=== PATIENT | female | born 1985 | race Caucasian/White ===

== ENCOUNTER → 2016-07-08 | Outpatient (CLI) | payer OTHER ==
[2016-07-08 12:46] LABS: Basophils # (A) 0.1 k/uL (0-0.2); Basophils % (A) 1 %; CHCM 32.3; Eosinophils # (A) 0.6 k/uL (0-0.7); Eosinophils % (A) 6 %; HCT 43.2 % (34.0-46.0); HDW 2.51; HGB 13.9 gm/dL (11.4-16.0); Luc # (Auto) 0.13; Luc % (Auto) 1; Lymphocytes # (A) 2.3 k/uL (1.0-4.8); Lymphocytes % (A) 21 %; MCHC 32.1 g/dL (31.0-37.0); MCV 90.2 fL (80.0-100.0); Mean Platelet Volume 7.5; Monocytes # (A) 0.6 k/uL (0-1.0); Monocytes % (A) 6 %; Neutrophils # (A) 7.1 k/uL (1.3-7.7); Neutrophils % (A) 66 %; RBC 4.79 m/uL (3.80-5.40); RDW 13.9 % (11.5-15.5); WBC 10.7 k/uL (3.8-10.6); WBC (Perox) 11.14
--- NOTE | 2016-07-08 14:32 | CT ---
EXAMINATION TYPE: CT abdomen pelvis w con DATE OF EXAM: 07/08/2016 2:25 PM COMPARISON: NONE HISTORY: Rt lower quad. pain CT DLP: 1843.8 mGycm Automated exposure control for dose reduction was used. TECHNIQUE: Helical acquisition of images from the lung bases through the pelvis have been completed. CONTRAST: Performed with Oral Contrast and with IV Contrast, patient injected with 100 mL of Omnipaque 300. FINDINGS: LUNG BASES: No significant abnormality is appreciated. AORTA: No significant abnormality is appreciated. LIVER/GB: Borderline enlarged liver, the liver shows low attenuation which may be due to fatty infilt ration, gallbladder is normal PANCREAS: No significant abnormality is seen. SPLEEN: No significant abnormality is seen. ADRENALS: No significant abnormality is seen. KIDNEYS: No significant abnormality is seen. REPRODUCTIVE ORGANS: No significant abnormality is seen BOWEL: No significant abnormality is seen. The appendix is normal. FREE AIR: No Free Air visible ASCITES: None visible. PELVIC ADENOPATHY: None visualized. RETROPERITONEAL ADENOPATHY: No Retroperitoneal Adenopathy visible. URINARY BLADDER: No significant abnormality is seen. OSSEOUS STRUCTURES: No significant abnormality is seen. There is an umbilical hernia which contains fat, some increased attenuation is present within the loc al fat suggesting inflammatory change. IMPRESSION: FINDINGS SUGGEST INCARCERATED FAT WITHIN AN ABDOMINAL WALL HERNIA IN THE UMBILICAL LOCATION WITH FAT NECROSIS. Additional findings above.
== END | disposition home or self-care (01) ==
LOC: RADCTMAIN 12:05 → UNDOADMIN 15:12 → 3SUR 15:12
PROVIDERS: ATTEND Family Medicine
DX: R10.30 Lower abdominal pain, unspecified (principal); R10.2 Pelvic and perineal pain
CPT/HCPCS: 85025; 74177; 36415; Q9967

== ENCOUNTER 2016-07-15 07:08 | Day surgery (SDC) | payer OTHER ==
[2016-07-10 13:18] VITALS: BMI 40.1
[~2016-07-15 07:08] MED LIST: DEXAMETHASONE SOD PHOSPHATE 10 MG/ML 1 ML VIAL IV ONE; HEPARIN SODIUM,PORCINE 5,000 UNIT/ML 1 ML VIAL SQ ONE; LACTATED RINGERS 1,000 ML IV SCH; LIDOCAINE 1% 20 ML VIAL (10MG/ML) FOR IV START INTRADERMA PRN; MIDAZOLAM 2 MG/2 ML VIAL IV PRN; ONDANSETRON 4 MG/2 ML VIAL IVP ONE; SCOPOLAMINE 1.5MG/72HR PATCH TRANSDERM ONE; ceFAZolin 2 GM in SODIUM CHLORIDE 0.9% 100 ML IVPB ONE
--- NOTE | 2016-07-15 07:52 | P.GSHP ---
History of Present Illness H&P Date: 07/15/16 Chief Complaint: Incarcerated umbilical hernia This a 31-year-old female who presents today for laparoscopic robotic-assisted repair of incarcerated umbilical hernia. Patient's had complaints of pain and a mass for several months. - Constitutional Constitutional: Reports as per HPI Past Medical History Past Medical History: No Reported History Additional Past Medical History / Comment(s): migraines, fluctuating- was on Rx but none currently History of Any Multi-Drug Resistant Organisms: None Reported Past Surgical History: Adenoidectomy, Ear Surgery, Orthopedic Surgery, Tonsillectomy Additional Past Surgical History / Comment(s): left foot surgery, tubes in ears Past Anesthesia/Blood Transfusion Reactions: No Reported Reaction Past Psychological History: Depression Additional Psychological History / Comment(s): no current rx Smoking Status: Current every day smoker Past Alcohol Use History: None Reported Additional Past Alcohol Use History / Comment(s): smokes 1/2 PPD, for 10 yrs Past Drug Use History: None Reported - Past Family History Mother Family Medical History: No Reported History Medications and Allergies Home Medications Medication Instructions Recorded Confirmed Type No Known Home Medications [No 07/10/16 07/15/16 History Known Home Medications] Allergies Allergy/AdvReac Type Severity Reaction Status Date / Time No Known Allergies Allergy Verified 07/15/16 07:34 Surgical - Exam Vital Signs Temp Pulse Resp BP Pulse Ox 98.4 F 88 18 142/95 98 07/15/16 07:35 07/15/16 07:35 07/15/16 07:35 07/15/16 07:35 07/15/16 07:35 - General well developed, no distress - Eyes PERRL - ENT normal pinna - Neck no masses - Respiratory normal expansion - Cardiovascular Rhythm: regular - Abdomen Abdomen: soft, non tender Hernia: umbilical, incarcerated Assessment and Plan Plan: Incarcerated umbilical hernia. We'll perform laparoscopic robotic system repair.
[2016-07-15] MEDS ORDERED: LACTATED RINGERS 1,000 ML IV ONE (08:00)
[2016-07-15] MEDS ORDERED: HYDROmorphone (PF) 1 MG/ML ONE (08:03)
[2016-07-15] MEDS ORDERED: GLYCOPYRROLATE 0.2 MG/ML 2 ML VIAL ONE (08:03)
[2016-07-15] MEDS ORDERED: ACETAMINOPHEN IV (For NPO) 1,000 MG/100 ML VIAL ONE (08:03)
[2016-07-15] MEDS ORDERED: LIDOCAINE 1% INJ 10MG/ML (20 ML MDV) ONE (08:03)
[2016-07-15] MEDS ORDERED: SUCCINYLCHOLINE CHLORIDE 100 MG/5 ML SYR IV ONE (08:03)
[2016-07-15] MEDS ORDERED: fentaNYL (PF) 50 MCG/ML 2 ML AMP ONE (08:03)
[2016-07-15] MEDS ORDERED: VECURONIUM 10 MG VIAL IV ONE (08:03)
[2016-07-15] MEDS ORDERED: KETOROLAC 30 MG/ML 1 ML VIAL ONE (08:03)
[2016-07-15] MEDS ORDERED: NEOSTIGMINE 1 MG/ML 10 ML VIAL ONE (08:03)
[2016-07-15] MEDS ORDERED: LABETALOL 5 MG/ML VIAL MDV ONE (08:03)
[2016-07-15] MEDS ORDERED: MIDAZOLAM 2 MG/2 ML VIAL ONE ×2 (08:03)
[2016-07-15] MEDS ORDERED: PROPOFOL 10 MG/ML 20 ML VIAL IV ONE (08:03)
[2016-07-15] MEDS ORDERED: BUPIVACAIN-EPI 0.25%-1:200,000 30 ML VIAL SQ ONE (08:34)
--- NOTE | 2016-07-15 09:25 | P.OP ---
Date of Procedure: 07/15/16 Preoperative Diagnosis: Incarcerated umbilical hernia Postoperative Diagnosis: Incarcerated umbilical hernia Procedure(s) Performed: Laparoscopic robotic-assisted repair of incarcerated umbilical hernia Anesthesia: OTTONIEL Surgeon: Manish Carrera Estimated Blood Loss (ml): 5 Pathology: other (Omentum) Condition: stable Disposition: PACU Description of Procedure: The patient's placed on the operative table in the supine position. She received general anesthesia. Her abdomen was prepped and draped in the usual sterile fashion. The patient's placed the left side up position. Using a 5 mm blade less trocar the peritoneal cavity is entered. Upon entering the pleural cavity the abdomen was insufflated. Laparoscope placed back the pleural cavity and then a 8 mm robotic trocar was placed the left lower quadrant and then a 12 mm trocar was placed in the left lateral position and then the original 5 mm trocar was exchanged for an 8 mm robotic trocar. The sutures mesh were placed into the perineal cavity. The fascial defect was visualized. There was incarcerated omentum. The incarcerated omentum was dissected free using the hook cautery. The fascial defect was then closed using OV lock suture. The ventral light ST mesh was then secured using 2 OV lock suture. The needles were then withdrawn. The incarcerated omentum was placed into an Endo Catch and brought out of the patient. And then a 12 mm fascia trocar site was closed with 0 Ethibond suture using a Maurice Christianson suture passer. The skin was closed interrupted 3-0 Monocryl suture. Dermabond was applied. Patient was sent to recovery in stable condition.
[2016-07-15 09:35] VITALS: TEMP 97.4
[2016-07-15] MEDS: HYDROmorphone 1 MG/ML 1 ML SYRINGE IVP PRN ×2 (09:40→09:46)
[2016-07-15 10:12] VITALS: RESP 18
[2016-07-15 10:43] VITALS: PULSE 82
[2016-07-15 11:03] VITALS: BP 125/87
== END 2016-07-15 11:07 | disposition home or self-care (01) ==
LOC: OR 07:08
PROVIDERS: ATTEND Surgery
DX: K42.0 Umbilical hernia with obstruction, without gangrene (principal); F17.200 Nicotine dependence, unspecified, uncomplicated
CPT/HCPCS: 81025; 88305; 49653; C1781; J2250; J1644; J1100; J2710; J0690; J2405; J2001; J3010; J1885; J1170; J0131; J0330; J2704

== ENCOUNTER 2017-08-04 20:06 | Emergency (ER) | payer OTHER ==
[2017-08-04 20:21] VITALS: RESP 18
--- NOTE | 2017-08-04 20:57 | ED ---
Extremity Problem HPI - General Chief complaint: Extremity Problem,Nontraumatic Stated complaint: left thigh pain Time Seen by Provider: 08/04/17 20:30 Source: patient Mode of arrival: ambulatory Limitations: no limitations - History of Present Illness Initial comments: 32-year-old male presented for evaluation of left anterior thigh pain. She states this started yesterday when she was running with her child. She states that they were racing back to her car and after she got the car and was resting she felt pain in her anterior thigh. States the pain is continued despite Motrin and Tylenol. She denies having any muscle sprains or muscle pulls. Worse with ambulation and improves with rest. There is no underlying swelling or erythema she has no decreased range of motion of her extremity's. There is no associated fevers chills there is no medial involvement of the thigh. - Related Data Home Medications Medication Instructions Recorded Confirmed ALPRAZolam [Xanax] 0.5 mg PO DAILY PRN 08/04/17 08/04/17 Valsartan [Diovan] 160 mg PO DAILY 08/04/17 08/04/17 buPROPion HCL [Wellbutrin SR] 200 mg PO BID 08/04/17 08/04/17 Previous Rx's Medication Instructions Recorded Ibuprofen [Motrin] 800 mg PO Q6HR #30 tab 08/04/17 Allergies Allergy/AdvReac Type Severity Reaction Status Date / Time No Known Allergies Allergy Verified 08/04/17 20:30 Review of Systems ROS Statement: Those systems with pertinent positive or pertinent negative responses have been documented in the HPI. ROS Other: All systems not noted in ROS Statement are negative. Constitutional: Denies: fever, chills Respiratory: Denies: cough, dyspnea Cardiovascular: Denies: chest pain, palpitations Musculoskeletal: Reports: myalgia. Denies: back pain, joint swelling, arthralgia Skin: Denies: rash, lesions, change in color Neurological: Denies: headache, weakness, numbness, paresthesias Past Medical History Past Medical History: Hypertension Additional Past Medical History / Comment(s): migraines, fluctuating- was on Rx but none currently History of Any Multi-Drug Resistant Organisms: None Reported Past Surgical History: Adenoidectomy, Section, Ear Surgery, Hernia Repair, Orthopedic Surgery, Tonsillectomy Additional Past Surgical History / Comment(s): left foot surgery, tubes in ears, Past Anesthesia/Blood Transfusion Reactions: No Reported Reaction Past Psychological History: Depression Smoking Status: Current every day smoker Past Alcohol Use History: None Reported Past Drug Use History: None Reported - Past Family History Mother Family Medical History: No Reported History General Exam Limitations: no limitations General appearance: alert, in no apparent distress Head exam: Present: atraumatic, normocephalic Eye exam: Present: normal appearance, PERRL Cardiovascular Exam: Present: regular rate, normal rhythm Rectal exam: Present: deferred Skin exam: Present: warm, dry (2 cm laceration to the right distal forearm) Course Vital Signs 08/04/17 08/04/17 20:14 21:29 Temperature 97.0 F L 98.2 F Pulse Rate 100 92 Respiratory 18 18 Rate Blood Pressure 193/105 184/100 O2 Sat by Pulse 97 99 Oximetry Procedures - Laceration Laceration #1 Consent Obtained: verbal consent Time Out Performed: Yes Indication: laceration Site: upper extremity Size (cm): 2 Description: linear Depth: simple, single layer Anesthetic Used: lidocaine 2% Anesthesia Technique: local infiltration Amount (mls): 4 Pre-repair: wound explored Type of Sutures: nylon Size of Sutures: 4-0 Technique: simple, interrupted Patient Tolerated Procedure: well Medical Decision Making - Medical Decision Making 32-year-old male presented for evaluation 2 cm lack to the right distal forearm. Linear and well approximated requiring 5 sutures. This updated. Given instructions to have sutures removed in 5-7 days. Given return instructions. Disposition Clinical Impression: Muscle strain of left thigh Disposition: HOME SELF-CARE Condition: Stable Instructions: Muscle Strain (ED), Musculoskeletal Pain (ED) Additional Instructions: Please use medication as discussed. Please follow up with family doctor if symptoms have not improved over the next two days. Please return to the emergency room if your symptoms increase or worsen or for any other concerns. Prescriptions: Ibuprofen [Motrin] 800 mg PO Q6HR #30 tab Referrals: Saritha Vela MD [Primary Care Provider] - 1-2 days Time of Disposition: 20:57
[2017-08-04 21:30] VITALS: BP 184/100; PULSE 92; TEMP 98.2
== END 2017-08-04 21:30 | disposition home or self-care (01) ==
LOC: EC 20:06
DX: S76.912A Strain of unspecified muscles, fascia and tendons at thigh level, left thigh, initial encounter (principal); S51.811A Laceration without foreign body of right forearm, initial encounter; I10 Essential (primary) hypertension; F32.9 Major depressive disorder, single episode, unspecified; F17.200 Nicotine dependence, unspecified, uncomplicated; Z98.890 Other specified postprocedural states; Z79.899 Other long term (current) drug therapy; X50.1XXA Overexertion from prolonged static or awkward postures, initial encounter; Y93.02 Activity, running
CPT/HCPCS: 12001; 99283

== ENCOUNTER 2017-09-29 11:33 | Emergency (ER) | payer OTHER ==
[2017-09-29 11:47] VITALS: TEMP 97.8
[2017-09-29] MEDS ORDERED: cloNIDine HCL 0.1 MG TAB PO STA (12:25)
--- NOTE | 2017-09-29 12:31 | ED ---
General Adult HPI - General Chief complaint: Upper Respiratory Infection Stated complaint: chest congestion/not sleeping Time Seen by Provider: 09/29/17 12:11 Source: patient, RN notes reviewed Mode of arrival: wheelchair Limitations: no limitations - History of Present Illness Initial comments: Patient 32 old female presented to the emergency room today with chief complaint cough congestion and rhinorrhea and a sore throat over the last 4 days. Patient states that she's had yellow sputum production. She does admit to headache behind her eyes. Patient states sore throat when she swallows. Patient denies any other complaints or symptoms at this time. Patient omits to having elevated blood pressures see her family doctor for this. - Related Data Home Medications Medication Instructions Recorded Confirmed ALPRAZolam [Xanax] 0.5 mg PO DAILY PRN 08/04/17 08/04/17 Valsartan [Diovan] 160 mg PO DAILY 08/04/17 08/04/17 buPROPion HCL [Wellbutrin SR] 200 mg PO BID 08/04/17 08/04/17 Previous Rx's Medication Instructions Recorded Ibuprofen [Motrin] 800 mg PO Q6HR #30 tab 08/04/17 Azithromycin [Zithromax Z-pack] 0 mg PO DIRECTED #6 tab 09/29/17 Fluticasone Propionate [Flonase 1 - 2 spray EA NOSTRIL DAILY 5 09/29/17 Allergy Relief] Days ml Allergies Allergy/AdvReac Type Severity Reaction Status Date / Time No Known Allergies Allergy Verified 09/29/17 11:46 Review of Systems ROS Statement: Those systems with pertinent positive or pertinent negative responses have been documented in the HPI. ROS Other: All systems not noted in ROS Statement are negative. Past Medical History Past Medical History: Hypertension Additional Past Medical History / Comment(s): migraines, fluctuating- was on Rx but none currently History of Any Multi-Drug Resistant Organisms: None Reported Past Surgical History: Adenoidectomy, Section, Ear Surgery, Hernia Repair, Orthopedic Surgery, Tonsillectomy Additional Past Surgical History / Comment(s): left foot surgery, tubes in ears, Past Anesthesia/Blood Transfusion Reactions: No Reported Reaction Past Psychological History: Depression Smoking Status: Current every day smoker Past Alcohol Use History: None Reported Past Drug Use History: None Reported - Past Family History Mother Family Medical History: No Reported History General Exam - General Exam Comments Initial Comments: General: The patient is awake and alert, in no distress, and does not appear acutely ill. Eye: Pupils are equal, round and reactive to light, extra-ocular movements are intact. No nystagmus. There is normal conjunctiva bilaterally. No signs of icterus. Ears, nose, mouth and throat: There are moist mucous membranes and no oral lesions. Patient does have tenderness over the frontal sinuses. Neck: The neck is supple, there is no tenderness or JVD. Cardiovascular: There is a regular rate and rhythm. No murmur, rub or gallop is appreciated. Respiratory: Lungs are clear to auscultation, respirations are non-labored, breath sounds are equal. No wheezes, stridor, rales, or rhonchi. Musculoskeletal: Normal ROM, no tenderness. Strength 5/5. Sensation intact. Pulses equal bilaterally 2+. Neurological: A&O x 3. CN II-XII intact, There are no obvious motor or sensory deficits. Coordination appears grossly intact. Speech is normal. Skin: Skin is warm and dry and no rashes or lesions are noted. Psychiatric: Cooperative, appropriate mood & affect, normal judgment. Limitations: no limitations Course Vital Signs 09/29/17 11:42 Temperature 97.8 F Pulse Rate 92 Respiratory 18 Rate Blood Pressure 183/106 O2 Sat by Pulse 98 Oximetry Medical Decision Making - Medical Decision Making Patient symptoms are consistent with a sinus infection will be treated with Flonase and given a prescription for azithromycin as she states she usually gets a antibiotic for infections. Patient blood pressure is mildly elevated here in the emergency room repeat blood pressure 177/105. She states she did take her morning medication. Patient states that she does have appointment with her family doctor for this. Patient agreeable to take a by mouth medication here the emergency room for blood pressure. She states she will have her blood pressure checked later this week. Disposition Clinical Impression: Acute sinusitis, Hypertension Disposition: HOME SELF-CARE Condition: Good Instructions: Sinusitis (ED) Additional Instructions: Please use medication as discussed. Please follow-up with family doctor in the next 2 days of symptoms have not improved. Please return to emergency room if the symptoms increase or worsen or for any other concerns. Prescriptions: Azithromycin [Zithromax Z-pack] 0 mg PO DIRECTED #6 tab Fluticasone Propionate [Flonase Allergy Relief] 1 - 2 spray EA NOSTRIL DAILY 5 Days ml Is patient prescribed a controlled substance at discharge?: No Referrals: Saritha Vela MD [Primary Care Provider] - 1-2 days Time of Disposition: 12:28
[2017-09-29 13:22] VITALS: BP 171/96; PULSE 64; RESP 16
== END 2017-09-29 13:23 | disposition home or self-care (01) ==
LOC: EC 11:33
DX: J01.90 Acute sinusitis, unspecified (principal); I10 Essential (primary) hypertension; J02.9 Acute pharyngitis, unspecified; F32.9 Major depressive disorder, single episode, unspecified; F17.200 Nicotine dependence, unspecified, uncomplicated; Z79.899 Other long term (current) drug therapy; Z90.89 Acquired absence of other organs
CPT/HCPCS: 99283

== ENCOUNTER 2018-10-31 09:06 | Inpatient (IN) | payer OTHER ==
[2018-10-31] MEDS: LACTATED RINGERS 1,000 ML IV SCH ×3 (09:55→12:42)
[2018-10-31 10:14] LABS: Basophils # (A) 0.1 k/uL (0-0.2); Basophils % (A) 0 %; Eosinophils # (A) 0.3 k/uL (0-0.7); Eosinophils % (A) 2 %; HCT 37.1 % (34.0-46.0); HGB 11.9 gm/dL (11.4-16.0); Lymphocytes % (A) 16 %; MCH 29.1 pg (25.0-35.0); MCHC 32.2 g/dL (31.0-37.0); MCV 90.4 fL (80.0-100.0); Mean Platelet Volume 7.1; Monocytes # (A) 0.6 k/uL (0-1.0); Monocytes % (A) 5 %; Neutrophils # (A) 9.1 k/uL (1.3-7.7); Neutrophils % (A) 75 %; Platelet Count 310 k/uL (150-450); RBC 4.11 m/uL (3.80-5.40); RDW 13.8 % (11.5-15.5); WBC 12.2 k/uL (3.8-10.6)
[2018-10-31 10:21] LABS: Appearance,Urine Cloudy (Clear); Bacteria,Urine Rare /hpf; Bilirubin,Urine 1+ (Negative); Blood,Urine Negative (Negative); Color,Urine Light Orange; Glucose,Urine (UA) Negative (Negative); Hyaline Casts,Urine 1 /lpf (0-2); Ketones,Urine 1+ (Negative); Leukocyte Esterase,Urine Moderate (Negative); Mucus,Urine Moderate /hpf; Nitrite,Urine Negative (Negative); Protein,Urine 1+ (Negative); RBC,Urine 2 /hpf (0-5); Specific Gravity,Urine 1.031 (1.001-1.035); Squamous Epithelial Cell,Urine 5 /hpf (0-4); WBC,Urine 7 /hpf (0-5)
[2018-10-31 10:38] LABS: ALT 11 U/L (9-52); AST 19 U/L (14-36); Blood Urea Nitrogen 12 mg/dL (7-17); LDH 454 U/L (313-618); Uric Acid 6.1 mg/dL (3.7-7.4)
[2018-10-31] MEDS ORDERED: OXYTOCIN 10 UNIT/ML 1 ML VIAL IM PRN (11:25)
[2018-10-31] MEDS ORDERED: LIDOCAINE 0.5% (PF) 5 MG/ML (50 ML SDV) SQ PRN (11:25)
[2018-10-31] MEDS ORDERED: TERBUTALINE 1 MG/ML VIAL SQ PRN (11:25)
[2018-10-31] MEDS ORDERED: CARBOPROST TROMETHAMINE 250 MCG/ML 1 ML AMP IM PRN (11:25)
[2018-10-31] MEDS ORDERED: METHYLERGONOVINE 0.2 MG/ML 1 ML AMP IM PRN (11:25)
[2018-10-31] MEDS ORDERED: AMPICILLIN 2,000 MG in SODIUM CHLORIDE 0.9% 100 ML IVPB STA (11:27)
[2018-10-31] MEDS ORDERED: OXYTOCIN 30 UNITS/500 ML NS 30 UNIT in SALINE 1 500ML.BAG IV SCH (11:30)
[2018-10-31] MEDS ORDERED: hydrALAZINE HCL 20 MG/ML 1 ML VIAL IVP STA (11:32)
[2018-10-31 12:46] VITALS: BMI 35.4
[2018-10-31] MEDS ORDERED: CALCIUM GLUCONATE 1 GM/10 ML VIAL IV PRN (12:47)
[2018-10-31] MEDS ORDERED: MAGNESIUM SULFATE-WATER PMX 4 GM in WATER FOR INJECTION 1 100ML.BAG IVPB ONE (12:47)
--- NOTE | 2018-10-31 12:54 | P.HPOB ---
History of Present Illness H&P Date: 10/31/18 Chief Complaint: IUP at 36 and 4/sevenths weeks, preeclampsia This is a 33-year-old 4 para 3003 that presented to labor and delivery this morning with complaints of pelvic pressure and contractions. Initial blood pressures were noted to be elevated 150s to 160s over 90s. Preeclampsia labs were drawn all were essentially negative with the exception of +1 protein on her urine, and an elevated uric acid of 6. Patient denied headache right upper quadrant pain or visual changes at this time. Patient notes good movement and NST in triage was noted to be reactive, contractions were irregular at this time. On cervical exam she was 1/thick/high. Patient has been receiving routine care with myself on last visit her blood pressure was noted to be slightly elevated 130s over 90s. Patient was given an outpatient lab slip for preeclampsia/24-hour urine she did not do this over the weekend. Patient states she is unsure of why she didn't have her labs drawn. On blood work patient had a blood type of A-, rubella immune, hepatitis B surface antigen negative, HIV negative, RPR nonreactive, GBS was unknown/pending for gestational age. Review of Systems Constitutional: Denies chills, Denies fatigue, Denies fever Ears, nose, mouth and throat: Denies headache Cardiovascular: Reports leg edema Respiratory: Denies dyspnea Gastrointestinal: Denies nausea, Denies vomiting Genitourinary: Reports Past Medical History Past Medical History: Hypertension Additional Past Medical History / Comment(s): migraines History of Any Multi-Drug Resistant Organisms: MRSA Date of last positivie culture/infection: 10/2018 MDRO Source:: bilateral ears Past Surgical History: Adenoidectomy, Section, Ear Surgery, Hernia Repair, Orthopedic Surgery, Tonsillectomy Additional Past Surgical History / Comment(s): left foot surgery, tubes in ears Past Anesthesia/Blood Transfusion Reactions: No Reported Reaction Past Psychological History: Anxiety, Depression Additional Psychological History / Comment(s): no current rx Smoking Status: Former smoker Past Alcohol Use History: None Reported Additional Past Alcohol Use History / Comment(s): smokes 1/2 PPD, quit smoking 1 week ago Past Drug Use History: None Reported - Past Family History Mother Family Medical History: No Reported History Medications and Allergies Home Medications Medication Instructions Recorded Confirmed Type No Known Home Medications 10/31/18 10/31/18 History Allergies Allergy/AdvReac Type Severity Reaction Status Date / Time No Known Allergies Allergy Verified 10/31/18 09:20 Exam Osteopathic Statement: *. No significant issues noted on an osteopathic structural exam other than those noted in the History and Physical/Consult. Vital Signs Temp Pulse Resp BP Pulse Ox 10/31/18 09:22 97.4 F L 99 16 152/90 98 Intake and Output 10/30/18 10/31/18 10/31/18 22:59 06:59 14:59 Other: Weight 90.718 kg Targeted physical exam is performed on this date in general this is a well- nourished well-developed female in no acute distress breathing is noted to be nonlabored and her heart has a regular rhythm. Abdomen is noted to be gravid and appropriate for gestational age, heart tones are noted to be reactive and she is cat irregularly, on cervical exam she is 2-3/thick/-2 station amniotomy is performed and clear fluid was obtained. Results Result Diagrams: 10/31/18 09:45 10/31/18 09:45 Abnormal Lab Results - Last 24 Hours (Table) 10/31/18 10/31/18 10/31/18 Range/Units 09:45 09:45 09:45 WBC 12.2 H (3.8-10.6) k/uL Neutrophils # 9.1 H (1.3-7.7) k/uL Urine Appearance Cloudy H (Clear) Urine Protein 1+ H (Negative) Urine Ketones 1+ H (Negative) Urine Bilirubin 1+ H (Negative) Ur Leukocyte Esterase Moderate H (Negative) Urine WBC 7 H (0-5) /hpf Ur Squamous Epith Cells 5 H (0-4) /hpf Urine Bacteria Rare H (None) /hpf Urine Mucus Moderate H (None) /hpf U Random Total Protein 18 H (<12) mg/dL Assessment and Plan (1) 36 weeks gestation of Current Visit: Yes Status: Acute Code(s): Z3A.36 - 36 WEEKS GESTATION OF SNOMED Code(s): 91268581 (2) Preeclampsia Current Visit: Yes Status: Acute Code(s): O14.90 - UNSPECIFIED PRE- ECLAMPSIA, UNSPECIFIED TRIMESTER SNOMED Code(s): 477076090 (3) H/O section Current Visit: Yes Status: Acute Code(s): Z98.891 - HISTORY OF UTERINE SCAR FROM PREVIOUS SURGERY SNOMED Code(s): 225228892 (4) Desires (vaginal after ) trial Current Visit: Yes Status: Acute Code(s): O34.219 - MATERNAL CARE FOR UNSP TYPE SCAR FROM PREVIOUS DEL SNOMED Code(s): 228312999 Plan: Patient is admitted to labor and delivery with induction of labor planned with Pitocin. Patient has a history of 2 vaginal deliveries, third delivery was a C- section secondary to breech presentation. Patient is begun on magnesium sulfate, labetalol is being given IV for blood pressures. We will watch closely and anticipate spontaneous vaginal delivery. If her blood pressures remain uncontrolled despite labetalol/hydralazine treatment we will consider to expedite delivery.
[2018-10-31] MEDS: LABETALOL SYRINGE 5 MG/ML IVP SCH (14:10)
[2018-10-31] MEDS ORDERED: fentaNYL (PF) 50 MCG/ML 5 ML AMP ONE (15:10)
[2018-10-31] MEDS ORDERED: SODIUM CHLORIDE 0.9% 100 ML BAG ONE (15:10)
[2018-10-31] MEDS ORDERED: ROPIVACAINE 5MG/ML 20ML VIAL ONE (15:10)
[2018-10-31] MEDS: AMPICILLIN 1,000 MG in SODIUM CHLORIDE 0.9% 50 ML IVPB SCH (16:24)
[2018-10-31] MEDS ORDERED: ACETAMINOPHEN TAB 325 MG TAB PO PRN (19:18)
[2018-10-31] MEDS ORDERED: SIMETHICONE 80 MG CHEWABLE PO PRN (19:18)
[2018-10-31] MEDS ORDERED: diphenhydrAMINE 25 MG CAP PO PRN (19:18)
[2018-10-31] MEDS ORDERED: WITCH HAZEL 1 EACH MED..PAD TOPICAL PRN (19:18)
[2018-10-31] MEDS ORDERED: BENZOCAINE/MENTHOL SPRAY 1 GM/SPRAY AEROSOL TOPICAL PRN (19:18)
[2018-10-31] MEDS ORDERED: ZOLPIDEM 5 MG TAB PO PRN (19:18)
[2018-10-31] MEDS ORDERED: LANOLIN CREAM 5 GM TUBE TOPICAL PRN (19:18)
[2018-10-31] MEDS ORDERED: diphenhydrAMINE 50 MG CAP PO PRN (19:18)
[2018-10-31] MEDS ORDERED: HYDROCORTISONE 2.5% RECTAL CREAM 30 GM TUBE RECTAL PRN (19:18)
[2018-10-31] MEDS ORDERED: diphenhydrAMINE 50 MG/ML 1 ML VIAL IVP PRN ×2 (19:18)
[2018-10-31] MEDS ORDERED: HYDROcodone/APAP 5-325MG 1 EACH TAB PO PRN (19:18)
--- NOTE | 2018-10-31 19:21 | P.PROBDLV ---
Vaginal Delivery Note - . Vaginal Delivery Note: This is a 33-year-old 4 para 3003 that was admitted to labor and delivery for elevated blood pressure/preeclampsia this afternoon. Patient had elevated pressures for 150s to 160s over 90s to 100. Patient denies headache visual changes or right upper quadrant pain or time. Pre-[place] labs were noted to be negative with the exception of an elevated uric acid at 6 and +1 protein in the urine. Patient was admitted to labor and delivery Pitocin induction of labor was begun. Once contractions were noted to be regular amniotomy was performed. Patient progressed became uncomfortable and requesting epidural placement. Epidural was placed by anesthesia without difficulty. Patient progressed to complete began pushing and had a normal spontaneous vaginal delivery of a viable male infant loose nuchal cord was noted 2 and this was delivered through. Of note a true knot was noted within the umbilical cord. The umbilical cord was doubly clamped and cut and the infant was handed off to awaiting RN. A spontaneous cry at was noted. The placenta was then delivered spontaneously intact with a three-vessel cord being noted. Inspection the patient's vaginal vault lacerations were noted the uterus sounded to be firm and below the umbilicus, estimated blood loss was noted to be 300 mL. Next para patient and tolerated delivery well and are resting comfortably. weight was noted to be 5/15, Apgars of 8 and 9 at one and 5 minutes res pectively. Delivery time of 1850.
[2018-10-31] MEDS ORDERED: OXYTOCIN 20 UNITS/1000 ML NS 1,000 ML IV SCH (19:30)
[2018-10-31] MEDS: LABETALOL 100 MG TAB PO SCH (20:29)
[2018-10-31] MEDS: IBUPROFEN 600 MG TAB PO PRN (21:47)
[2018-11-01] MEDS: SENNOSIDES-DOCUSATE SODIUM 1 EACH TAB PO SCH ×3 (01:41→20:06)
[2018-11-01 07:29] LABS: Basophils % (A) 0 %; Eosinophils # (A) 0.3 k/uL (0-0.7); Eosinophils % (A) 3 %; HCT 33.2 % (34.0-46.0); HGB 10.5 gm/dL (11.4-16.0); Lymphocytes # (A) 2.1 k/uL (1.0-4.8); Lymphocytes % (A) 20 %; MCH 29.1 pg (25.0-35.0); MCHC 31.7 g/dL (31.0-37.0); MCV 91.9 fL (80.0-100.0); Mean Platelet Volume 7.1; Monocytes # (A) 0.6 k/uL (0-1.0); Monocytes % (A) 6 %; Neutrophils # (A) 7.4 k/uL (1.3-7.7); Neutrophils % (A) 69 %; Platelet Count 268 k/uL (150-450); RBC 3.61 m/uL (3.80-5.40); RDW 13.8 % (11.5-15.5); WBC 10.6 k/uL (3.8-10.6)
--- NOTE | 2018-11-01 09:23 | P.PNOBGVD ---
Subjective - Subjective Principal diagnosis: PPD 1 Interval history: Patient is doing well status post normal spontaneous vaginal delivery. Patient denies concerns this morning she states her pain is well-controlled. She is bottle feeding. Her lochia is moderate. She is ambulatory and voiding without difficulty. Blood pressures overnight 150s over 90s tolerating labetalol 100 twice daily well Patient reports: Reports appetite normal, Reports voiding normally, Reports pain well controlled, Reports ambulating normally : doing well Objective - Latest Vital Signs Latest vital signs: Vital Signs Temp Pulse Pulse Resp BP Pulse Ox 11/01/18 07:41 97.8 F 67 16 150/95 11/01/18 04:00 98.2 F 77 18 128/72 98 11/01/18 00:00 98 F 85 16 133/71 97 10/31/18 21:01 97.4 F L 88 17 131/68 10/31/18 20:31 83 16 154/85 10/31/18 20:01 83 16 151/91 10/31/18 19:46 86 16 147/81 10/31/18 19:31 97.5 F L 90 16 160/84 10/31/18 19:16 85 16 147/80 10/31/18 19:01 98.7 F 87 16 162/80 Intake and Output 10/31/18 11/01/18 11/01/18 22:59 06:59 14:59 Other: # Voids 1 1 - Exam Extremities: Present: edema Abdomen: Present: normal appearance, soft Uterus: Present: normal, firm - Labs Labs: Abnormal Lab Results - Last 24 Hours (Table) 10/31/18 10/31/18 10/31/18 Range/Units 09:45 09:45 09:45 WBC 12.2 H (3.8-10.6) k/uL RBC (3.80-5.40) m/uL Hgb (11.4-16.0) gm/dL Hct (34.0-46.0) % Neutrophils # 9.1 H (1.3-7.7) k/uL Urine Appearance Cloudy H (Clear) Urine Protein 1+ H (Negative) Urine Ketones 1+ H (Negative) Urine Bilirubin 1+ H (Negative) Ur Leukocyte Esterase Moderate H (Negative) Urine WBC 7 H (0-5) /hpf Ur Squamous Epith Cells 5 H (0-4) /hpf Urine Bacteria Rare H (None) /hpf Urine Mucus Moderate H (None) /hpf U Random Total Protein 18 H (<12) mg/dL // Range/Units 06:31 WBC (3.8-10.6) k/uL RBC 3.61 L (3.80-5.40) m/uL Hgb 10.5 L (11.4-16.0) gm/dL Hct 33.2 L (34.0-46.0) % Neutrophils # (1.3-7.7) k/uL Urine Appearance (Clear) Urine Protein (Negative) Urine Ketones (Negative) Urine Bilirubin (Negative) Ur Leukocyte Esterase (Negative) Urine WBC (0-5) /hpf Ur Squamous Epith Cells (0-4) /hpf Urine Bacteria (None) /hpf Urine Mucus (None) /hpf U Random Total Protein (<12) mg/dL Assessment and Plan (1) 36 weeks gestation of Current Visit: Yes Status: Acute Code(s): Z3A.36 - 36 WEEKS GESTATION OF SNOMED Code(s): 58111657 (2) Preeclampsia Current Visit: Yes Status: Acute Code(s): O14.90 - UNSPECIFIED PRE- ECLAMPSIA, UNSPECIFIED TRIMESTER SNOMED Code(s): 122299165 (3) H/O section Current Visit: Yes Status: Acute Code(s): Z98.891 - HISTORY OF UTERINE SCAR FROM PREVIOUS SURGERY SNOMED Code(s): 955121534 (4) Desires (vaginal after ) trial Current Visit: Yes Status: Acute Code(s): O34.219 - MATERNAL CARE FOR UNSP TYPE SCAR FROM PREVIOUS DEL SNOMED Code(s): 668693673 (5) , delivered Current Visit: Yes Status: Acute Code(s): O34.219 - MATERNAL CARE FOR UNSP TYPE SCAR FROM PREVIOUS DEL SNOMED Code(s): 329867976 Plan: Patient is doing well, we will continue routine care
[2018-11-01] MEDS: LABETALOL 100 MG TAB PO SCH ×2 (10:09→20:49)
[2018-11-01] MEDS ORDERED: LABETALOL 100 MG TAB PO STA (16:44)
[2018-11-01] MEDS: LACTATED RINGERS 1,000 ML IV SCH ×2 (19:08→19:09)
[2018-11-01] MEDS: MAGNESIUM SULFATE-WATER PMX 20 GM in WATER FOR INJECTION 1 500ML.BAG IV SCH ×2 (19:09→19:10)
[2018-11-01] MEDS: AMPICILLIN 1,000 MG in SODIUM CHLORIDE 0.9% 50 ML IVPB SCH ×2 (19:10→19:11)
[2018-11-01] MEDS: IBUPROFEN 600 MG TAB PO PRN (20:51)
[2018-11-01] MEDS: LABETALOL SYRINGE 5 MG/ML IVP SCH ×2 (23:53→23:54)
--- NOTE | 2018-11-02 07:07 | P.DS ---
Providers Date of admission: 10/31/18 10:57 Expected date of discharge: 11/02/18 Attending physician: Basilia Villa Primary care physician: Stated None - Discharge Diagnosis(es) (1) 36 weeks gestation of Current Visit: Yes Status: Acute (2) Preeclampsia Current Visit: Yes Status: Acute (3) H/O section Current Visit: Yes Status: Acute (4) Desires (vaginal after ) trial Current Visit: Yes Status: Acute (5) , delivered Current Visit: Yes Status: Acute Hospital Course: This is a pleasant 33-year-old 4 para 3003 that was admitted to labor and delivery from the office for elevated blood pressures/preeclampsia. Blood pressures in the office 140/80s, which increased on OB to 150s to 160s over 90s to 100. Patient denied secondary symptoms of preeclampsia but was admitted for delivery. Pitocin induction of labor was begun patient progressed through labor eventually becoming comfortable and requesting epidural placement with anesthesia department. Anesthesia did place is epidural without difficulty. She progressed to complete began pushing and had a normal spontaneous vaginal delivery of a viable male at 1851, Apgars of 8 and 9 at one and 5 minutes respectively P. With a weight of 5 lbs. 15 oz. Patient's course has been essentially uneventful. She did start labetalol 200 mg twice daily for blood pressure control. She denies concerns in this day #2 and is ready for discharge home. She states she is ambulating and voiding without difficulty her lochia is moderate and she is tolerating a regular diet without nausea or vomiting. She does wish discharge home on this day #2 Patient Condition at Discharge: Good Plan - Discharge Summary New Discharge Prescriptions: No Action No Known Home Medications Discharge Medication List No Known Home Medications 10/31/18 [History] Follow up Appointment(s)/Referral(s): Basilia Villa DO [Doctor of Osteopathic Medicine] - 2 Weeks Patient Instructions/Handouts: Vaginal Delivery (DC), Vaginal Delivery (GEN) Discharge Disposition: HOME SELF-CARE
[2018-11-02] MEDS ORDERED: LABETALOL 200 MG TAB PO SCH (09:00)
[2018-11-02] MEDS: SENNOSIDES-DOCUSATE SODIUM 1 EACH TAB PO SCH (09:53)
[2018-11-02 09:59] VITALS: RESP 15; TEMP 98.2
[2018-11-02 10:00] VITALS: PULSE 77
[2018-11-02 10:57] VITALS: BP 150/99
== END 2018-11-02 11:01 | disposition home or self-care (01) | DRG 807 ==
LOC: FBPOP 09:06 → 4FBP 10:57
PROVIDERS: ADMIT Obstetrics & Gynecology Obstetrics; ATTEND Obstetrics & Gynecology Obstetrics
PROC: 10E0XZZ Delivery of Products of Conception, External Approach (ICD-10-PCS; principal; 2018-10-31)
PROC: 00HU33Z Insertion of Infusion Device into Spinal Canal, Percutaneous Approach (ICD-10-PCS; 2018-10-31)
PROC: 3E0R3BZ Introduction of Anesthetic Agent into Spinal Canal, Percutaneous Approach (ICD-10-PCS; 2018-10-31)
PROC: 3E033VJ Introduction of Other Hormone into Peripheral Vein, Percutaneous Approach (ICD-10-PCS; 2018-10-31)
PROC: 10907ZC Drainage of Amniotic Fluid, Therapeutic from Products of Conception, Via Natural or Artificial Opening (ICD-10-PCS; 2018-10-31)
DX: O14.94 Unspecified pre-eclampsia, complicating childbirth (principal); Z37.0 Single live birth; O99.344 Other mental disorders complicating childbirth; O69.2XX0 Labor and delivery complicated by other cord entanglement, with compression, not applicable or unspecified; Z3A.36 36 weeks gestation of pregnancy; O34.211 Maternal care for low transverse scar from previous cesarean delivery; N85.8 Other specified noninflammatory disorders of uterus; F32.9 Major depressive disorder, single episode, unspecified; F41.9 Anxiety disorder, unspecified; G43.909 Migraine, unspecified, not intractable, without status migrainosus; Z86.14 Personal history of Methicillin resistant Staphylococcus aureus infection; Z87.891 Personal history of nicotine dependence; Z98.890 Other specified postprocedural states
CPT/HCPCS: 59025; 81001; 82565; 82570; 83615; 84156; 84450; 84460; 84520; 84550; 85025; 86850; 86870; 86880; 86900; 86901; 86902; 88307; 96360; 99215